=== PATIENT | female | born 1995 | race Caucasian/White ===

== ENCOUNTER 2025-03-16 17:16 | Emergency (ER) | payer BC ==
[~2025-03-16] VITALS: Ht 162.6 cm; Wt 68.5 kg
[2025-03-16] MEDS ORDERED: ONDANSETRON HCL/PF 4 MG/2 ML VIAL ONE (17:28)
[2025-03-16] MEDS: IV NS 0.9% 1,000 ML BAG IV ONE (17:51)
[2025-03-16] MEDS: ONDANSETRON HCL/PF 4 MG/2 ML VIAL IVP ONE (17:52)
[2025-03-16 18:00] LABS: PLATELET COUNT (AUTO) 208 K/uL (150-450); RED BLOOD CELL COUNT(AUTO) 4.60 MIL/uL (4.0-5.2); RED CELL DISTRIBUTION WIDTH 13.0 % (11.5-15.0); WHITE BLOOD COUNT (AUTO) 12.5 K/uL (4.3-11.0)
[2025-03-16 18:05] LABS: CALCIUM, SERUM 9.3 mg/dL (8.5-10.1); CREATININE 0.7 mg/dL (0.6-1.3); SODIUM SERUM 135.0 mmol/L (136-145); UREA NITROGEN, BLOOD 6.0 mg/dL (7-18)
[2025-03-16 18:13] LABS: APPEARANCE,URINE CLEAR (CLEAR); BLOOD, URINE 3+ Ery/uL (NEGATIVE); LEUKOCYTE ESTERASE ,URINE NEGATIVE (NEGATIVE); NITRITE, URINE NEGATIVE (NEGATIVE); PREGNANCY TEST URINE QUAL NEGATIVE (NEGATIVE); UGLUCOSE NEGATIVE (NEGATIVE)
[2025-03-16 18:19] LABS: ASPARTATE AMINOTRANSFERASE 16.0 U/L (15-37); TOTAL PROTEIN, SERUM 8.1 g/dL (6.4-8.2)
[2025-03-16 18:29] LABS: ADD URINE CULTURE YES; SQUAMOUS EPITHELIAL CELL,UR Few /HPF (None Seen)
[2025-03-16] MEDS ORDERED: ONDA4TAB5 PO (18:49)
[2025-03-16] MEDS ORDERED: IBUP-1490 PO (18:49)
[2025-03-16] MEDS ORDERED: KETOROLAC TROMETHAMINE 15 MG/ML VIAL ONE (18:53)
[2025-03-16] MEDS: KETOROLAC TROMETHAMINE 15 MG/ML VIAL IV ONE (18:56)
[2025-03-16 19:05] VITALS: BP 117/80; TEMP 97.9; O2SAT 100
== END 2025-03-16 19:06 | disposition home or self-care (01) ==
LOC: ER 17:21
DX: K52.9 Noninfective gastroenteritis and colitis, unspecified (principal); R10.20 Pelvic and perineal pain unspecified side
CPT/HCPCS: 99284; 96374; 96361; 96375; 85025; 80048; 87086; 83690; 80076; 84703; 81001; 36415; J1885; J2405; J7030

== ENCOUNTER 2025-03-18 04:34 | Emergency (ER) | payer BC ==
[~2025-03-18] VITALS: Ht 162.6 cm; Wt 68.0 kg
[~2025-03-18 04:34] MED LIST: IBUP-1490 PO; ONDA4TAB5 PO
[2025-03-18] MEDS ORDERED: ONDANSETRON HCL/PF 4 MG/2 ML VIAL ONE (04:52)
[2025-03-18] MEDS: IV NS 0.9% 1,000 ML BAG IV ONE (05:34)
[2025-03-18] MEDS: ONDANSETRON HCL/PF 4 MG/2 ML VIAL IVP ONE (05:40)
[2025-03-18 06:06] LABS: PLATELET COUNT (AUTO) 173 K/uL (150-450); RED BLOOD CELL COUNT(AUTO) 3.83 MIL/uL (4.0-5.2); RED CELL DISTRIBUTION WIDTH 13.0 % (11.5-15.0); WHITE BLOOD COUNT (AUTO) 9.7 K/uL (4.3-11.0)
[2025-03-18 06:16] LABS: CALCIUM, SERUM 8.4 mg/dL (8.5-10.1); CREATININE 0.7 mg/dL (0.6-1.3); SODIUM SERUM 140.0 mmol/L (136-145); UREA NITROGEN, BLOOD 4.0 mg/dL (7-18)
[2025-03-18 06:20] LABS: INR 1.04 (0.91-1.10)
[2025-03-18] MEDS ORDERED: HALOPERIDOL LACTATE INJ 5 MG/ML VIAL ONE (06:22)
[2025-03-18] MEDS ORDERED: KETOROLAC TROMETHAMINE INJ 30 MG/ML VIAL ONE (06:23)
[2025-03-18] MEDS: KETOROLAC TROMETHAMINE INJ 30 MG/ML VIAL IV ONE (06:27)
[2025-03-18] MEDS: HALOPERIDOL LACTATE INJ 5 MG/ML VIAL IV ONE (06:27)
[2025-03-18 06:32] LABS: ASPARTATE AMINOTRANSFERASE 9.0 U/L (15-37); TOTAL PROTEIN, SERUM 6.9 g/dL (6.4-8.2)
[2025-03-18] MEDS ORDERED: METO-295 PO (07:29)
[2025-03-18 07:43] VITALS: BP 121/70; TEMP 98.6; O2SAT 98
== END 2025-03-18 07:43 | disposition home or self-care (01) ==
LOC: ER 04:41
DX: K52.9 Noninfective gastroenteritis and colitis, unspecified (principal); K22.6 Gastro-esophageal laceration-hemorrhage syndrome; M79.7 Fibromyalgia
CPT/HCPCS: 99284; 96374; 96375; 96361; 85025; 80048; 83690; 80076; 36415; 85730; J1885; J1630; J2405; J7030